=== PATIENT | male | born 1940 | race Caucasian/White ===

== ENCOUNTER 2017-07-14 02:51 | Outpatient (CLI) | payer MEDICARE, OTHER | END 2017-07-14 02:52 | disposition critical access hospital (66) | LOC: EMS 02:51 | PROVIDERS: ATTEND Surgery | DX: R07.9 Chest pain, unspecified (principal) | CPT/HCPCS: A0425; A0427 ==

== ENCOUNTER 2017-07-14 03:15 | Inpatient (IN) | payer MEDICARE, OTHER ==
[2017-07-14 03:43] LABS: BASOPHILS # (AUTO) 0.1 10^3/uL (0.0-0.1); BASOPHILS % (AUTO) 1.6 %; EOSINOPHILS # (AUTO) 0.1 10^3/uL (0.0-0.7); EOSINOPHILS % (AUTO) 0.8 %; HCT - HEMATOCRIT 36.2 % (42.0-52.0); LYMPHOCYTES # (AUTO) 1.1 10^3/uL (1.5-3.5); LYMPHOCYTES % (AUTO) 13.2 %; MEAN CORPUSCULAR HEMOGLOBIN 29.2 pg (27.0-31.0); MEAN CORPUSCULAR HGB CONC 33.1 g/dL (32.0-36.0); MEAN CORPUSCULAR VOLUME 88.3 fL (80.0-94.0); MEAN PLATELET VOLUME 7.8 fL (7.4-11.4); MONOCYTES # (AUTO) 0.8 10^3/uL (0.0-1.0); MONOCYTES % (AUTO) 9.2 %; NEUTROPHILS # (AUTO) 6.3 10^3/uL (1.5-6.6); NEUTROPHILS % (AUTO) 75.2 %; NUCLEATED RED BLOOD CELLS AUTO 0.1 /100WBC; RED CELL DISTRIBUTION WIDTH 14.6 % (12.0-15.0); UNCORRECTED WHITE BLOOD COUNT 8.4 x10^3/uL; WHITE BLOOD COUNT 8.4 x10^3/uL (4.8-10.8)
[2017-07-14 03:48] LABS: INR 1.5 (0.8-1.2); PT - PROTHROMBIN TIME 16.7 secs (9.9-12.6)
[2017-07-14 03:55] LABS: PARTIAL THROMBOPLASTIN TIME 28.4 secs (24.9-33.3)
--- NOTE | 2017-07-14 04:03 | XRAY Preliminary Report ---
Exam: XR Chest 1 View IMPRESSION: 1. Cardiomegaly with pulmonary opacities likely representing interstitial edema. [facility] SITE ID: [id number]
[2017-07-14 04:04] LABS: ALBUMIN/GLOBULIN RATIO 1.4 (1.0-2.2); BILIRUBIN,TOTAL 1.2 mg/dL (0.2-1.0); CALCIUM 8.9 mg/dL (8.5-10.3); CREATININE 1.2 mg/dL (0.6-1.2); MAGNESIUM 1.9 mg/dL (1.7-2.8); PHOSPHORUS 3.8 mg/dL (2.5-4.6); POTASSIUM 3.3 mmol/L (3.5-5.0)
--- NOTE | 2017-07-14 04:05 | XRAY Report ---
EXAM: CHEST RADIOGRAPHY EXAM DATE: 07/14/2017 03:33 AM. CLINICAL HISTORY: Chest pain. COMPARISON: None. TECHNIQUE: 1 view. FINDINGS: Lungs/Pleura: Bilateral mostly interstitial opacities which may represent pulmonary edema. No pleural effusion seen. No pneumothorax. Bibasilar atelectasis. Mediastinum: Mild cardiomegaly. Aortic atherosclerosis. Other: None. IMPRESSION: 1. Cardiomegaly with pulmonary opacities likely representing interstitial edema. [facility] Referring Provider Line: [phone] SITE ID: [id number]
[2017-07-14] MEDS ORDERED: FUROSEMIDE 40 MG/4 ML VIAL IVP STA (04:09)
[2017-07-14] MEDS ORDERED: FUROSEMIDE 40 MG/4 ML VIAL ONE (04:16)
--- NOTE | 2017-07-14 05:00 | ED Physician Documentation ---
PD HPI CHEST PAIN - Stated complaint Stated Complaint: CHEST PN/CHF - Chief complaint Chief Complaint: Cardiac - History obtained from History obtained from: Patient, EMS - History of Present Illness Timing - onset: Today Timing - onset during: Rest Timing - details: Abrupt onset, Now resolved Quality: Pressure, Sharp Location: Substernal, Left chest Improved by: Rest Associated symptoms: Shortness of air. No: Diaphoresis, Nausea, Vomiting, Feeling faint / dizzy Similar symptoms before: Work up / diagnostics, Treatment Recently seen: Emergency Dept - Additional information Additional information: Patient is a 76 year old male who was recently diagnosed with chf who is presenting to the emergency department for chest pain and shortness of breath. According to patient, family and ems patient has had intermittent chest pain for the last few weeks. Patient states that is supposed to follow up with a pharmacist aide but he has not been able to yet. Patient was also told to hold his lasix until today. patient reports that he had some chest pain so he called ems. When ems arrived his chest pain had resolved but patient was treated with aspirin. Upon my initial evaluation in the emergency department patient's chest pain had resolved. Review of Systems Constitutional: denies: Fever, Chills Eyes: denies: Decreased vision Ears: denies: Ear pain, Drainage/discharge Nose: denies: Rhinorrhea / runny nose, Congestion Throat: denies: Sore throat Cardiac: reports: Chest pain / pressure, Pedal edema. denies: Palpitations Respiratory: reports: Dyspnea GI: denies: Abdominal Pain, Nausea, Vomiting Skin: denies: Rash, Lesions Musculoskeletal: reports: Extremity swelling. denies: Extremity pain Neurologic: denies: Generalized weakness, Focal weakness PD PAST MEDICAL HISTORY - Past Medical History Past Medical History: Yes Cardiovascular: Congestive heart failure, Hypertension, Coronary artery disease , Angina, Atrial fibrillation, Other Respiratory: Asthma GI: GERD, Diverticulitis, Crohn's disease : Benign prostate hypertrophy Musculoskeletal: Osteoarthritis - Past Surgical History Past Surgical History: Yes General: Colonoscopy Cardiovascular: Cardiac catheterization HEENT: Tonsil/Adenoidectomy - Present Medications Home Medications: Ambulatory Orders Medication Instructions Recorded Confirmed Alfuzosin HCl [Alfuzosin HCl ER] 10 mg PO DAILY 07/14/17 07/14/17 Calcium Carbonate/Vitamin D3 1 tab PO DAILY 07/14/17 07/14/17 [Calcium 250-Vit D3 125 Tablet] Cyclobenzaprine [Flexeril] 10 mg PO TID PRN 07/14/17 07/14/17 Finasteride [Propecia] 1 mg PO DAILY 07/14/17 07/14/17 Folic Acid 1 mg PO DAILY 07/14/17 07/14/17 Furosemide 40 mg PO DAILY 07/14/17 07/14/17 Mesalamine [Pentasa] 1,500 mg PO BID 07/14/17 07/14/17 Metoprolol Succinate 50 mg PO DAILY 07/14/17 07/14/17 Omeprazole 20 mg PO DAILY 07/14/17 07/14/17 Ondansetron Odt [Zofran Odt] 4 mg SL Q6H 07/14/17 07/14/17 Rivaroxaban [Xarelto] 20 mg PO DAILY 07/14/17 07/14/17 Simvastatin 40 mg PO QPM 07/14/17 07/14/17 - Allergies Allergies/Adverse Reactions: Allergies Allergy/AdvReac Type Severity Reaction Status Date / Time Iodinated Contrast- Oral and Allergy Hives Verified 07/14/17 03:44 IV Dye thallium-201 Allergy Hives Verified 07/14/17 03:44 warfarin Allergy Hallucinati Verified 07/14/17 03:54 ons ibuprofen AdvReac Unknown Verified 07/14/17 03:53 Sulfa (Sulfonamide AdvReac Nausea Verified 07/14/17 03:44 Antibiotics) terazosin AdvReac Unknown Verified 07/14/17 03:54 - Social History Does the pt smoke?: No Smoking Status: Never smoker Does the pt drink ETOH?: No Does the pt have substance abuse?: No - Immunizations Immunizations are current?: Yes PD ED PE NORMAL - Vitals Vital signs reviewed: Yes - General General: Alert and oriented X 3 - HEENT HEENT: Atraumatic, PERRL - Neck Neck: Supple, no meningeal sign - Abdomen Abdomen: Soft, Non distended - Derm Derm: Normal color, No rash - Neuro Neuro: Alert and oriented X 3, No motor deficit, No sensory deficit, Normal speech - Psych Psych: Normal mood, Normal affect PD ED PE EXPANDED - Cardiac Cardiac: Irregularly irregular, Murmur Present - Respiratory Respiratory: Rales, Right upper lobe, Right middle lobe, Left upper lobe, Left lower lobe - Extremities Extremities: Pedal edema bilateral Results - Vitals Vitals: Vital Signs - 24 hr 07/14/17 07/14/17 07/14/17 03:16 03:33 05:06 Temperature 36.2 C L Heart Rate 76 79 70 Respiratory 26 H 20 22 Rate Blood Pressure 124/78 117/84 H 127/81 H O2 Saturation 93 97 98 Oxygen O2 Source Nasal cannula - EKG (time done) 0321 Rate: Rate (enter#) (77) Rhythm: Atrial fibrillation Intervals: Prolonged QT QRS: Normal Compare to prior EKG: Old EKG unavailable - Labs Labs: Laboratory Tests 07/14/17 07/14/17 07/14/17 03:30 03:30 03:30 WBC 8.4 RBC 4.10 L Hgb 12.0 L Hct 36.2 L MCV 88.3 MCH 29.2 MCHC 33.1 RDW 14.6 Plt Count 159 MPV 7.8 Neut # 6.3 Lymph # 1.1 L [place] # 0.8 Eos # 0.1 Baso # 0.1 Absolute Nucleated RBC 0.01 Nucleated RBC % 0.1 PT INR APTT Sodium 132 L Potassium 3.3 L Chloride 91 L Carbon Dioxide 31 Anion Gap 10.0 BUN 28 H Creatinine 1.2 Estimated GFR (MDRD) 59 L Glucose 112 H Calcium 8.9 Phosphorus 3.8 Magnesium 1.9 Total Bilirubin 1.2 H AST 22 ALT 25 Alkaline Phosphatase 63 Troponin I < 0.04 B-Natriuretic Peptide Total Protein 6.0 L Albumin 3.5 Globulin 2.5 Albumin/Globulin Ratio 1.4 Lipase 07/14/17 07/14/17 03:30 03:30 WBC RBC Hgb Hct MCV MCH MCHC RDW Plt Count MPV Neut # Lymph # [place] # Eos # Baso # Absolute Nucleated RBC Nucleated RBC % PT 16.7 H INR 1.5 H APTT 28.4 Sodium Potassium Chloride Carbon Dioxide Anion Gap BUN Creatinine Estimated GFR (MDRD) Glucose Calcium Phosphorus Magnesium Total Bilirubin AST ALT Alkaline Phosphatase Troponin I B-Natriuretic Peptide 802 H Total Protein Albumin Globulin Albumin/Globulin Ratio Lipase - Rads (name of study) chest x-ray Radiology: Final report received (cardiomegaly, pulmonary edema) PD MEDICAL DECISION MAKING - ED course Complexity details: reviewed results, re-evaluated patient, considered differential, d/w patient, d/w family, d/w sap consultant ED course: Patient was seen and examined at bedside. IV access was gained and labs were drawn. ekg was performed which did not reveal any ischemic changes. chest x- ray was performed which was consistent with pulmonary edema. patient was treated with lasix 40mg IV. Case was discussed with hospitalist and it was decided to obs the patient for chf exacerbation. Patient remained chest pain free while in the emergency department. Departure - Departure Disposition: ED Place in Observation Clinical Impression: Congestive heart failure Condition: Stable
[2017-07-14] MEDS ORDERED: ACETAMINOPHEN 325 MG TABLET PO PRN (05:01)
[2017-07-14] MEDS ORDERED: CYCLOBENZAPRINE 10 MG TABLET PO PRN (05:01)
[2017-07-14] MEDS ORDERED: NITROGLYCERIN SL 0.4 MG TABLET SL PRN (05:01)
[2017-07-14] MEDS ORDERED: PROCHLORPERAZINE 10 MG/2 ML VIAL IVP PRN (05:01)
[2017-07-14] MEDS ORDERED: ONDANSETRON ODT 4 MG TABLET TL PRN (05:01)
[2017-07-14] MEDS ORDERED: IBUPROFEN 600 MG TABLET PO PRN (05:01)
[2017-07-14] MEDS ORDERED: MORPHINE 2 MG/ML SYRINGE IVP PRN (05:01)
--- NOTE | 2017-07-14 05:14 | HISTORY & PHYSICAL EXAMINATION ---
Chief Complaint - Chief Complaint Chief Complaint: Chest pain History of Present Illness - Admitted From Admitted From:: Emergency department - History Obtained From Records Reviewed: Yes History obtained from: Patient Exam Limitations: No - History of Present Illness HPI Comment/Other: Patient is a 76-year-old gentleman with a past medical history significant for coronary artery disease status post FL in 1973 and placement of 2 stents, history of 3 TIAs, atrial fibrillation status post ablation 15 years ago currently on Xarelto, recently diagnosed congestive heart failure no record of echo, Crohn's disease and diverticulosis who presented to the emergency department with a chief complaint of chest pain. The patient states he was in his normal state of health until about a week and a half ago at which time he experienced some chest pain that was left-sided with associated shortness of breath. This led him to go to [facility] where he was diagnosed with congestive heart failure and admitted. Patient states he stayed there for 3 days and was given IV Lasix and then discharged on oral Lasix. The patient states that since the discharge she has been having some shortness of breath with exertion but has been feeling relatively better. The patient states that he went to see his primary care physician just 3 days ago to follow-up on his congestive heart failure. At that time he told his primary care physician that he was having some dizziness and feeling loopy from the diuretic therefore his primary care physician told him to hold the Lasix for the next 3 days and then started a lower dose on Monday. The patient states he followed his primary care physician's instructions but last night at 11:30 PM she began having chest pain. The chest pain was localized in the left side of the chest without any radiation. He states the pain was a 4 5 out of 10. He describes it as a dull pain. He states it was associated with shortness of breath. He states that it started at rest and initially was not bad enough that it prompted him to come to the emergency department. He states he went to bed but woke up about 3 hours later and was still having the chest pain. The patient then decided to call EMS. The patient states that the chest pain resolved once EMS arrived. He states he did take 4 baby aspirin but states that the pain resolved on its own. The patient did have some associated shortness of breath but no associated nausea, diaphoresis or palpitations. The patient states that he has been checking his weight daily and has been consistently losing weight since his recent hospitalization. The patient denies any increased lower extremity edema. He also denies any worsening orthopnea or PND until tonight. Patient denies any headaches, blurred vision, runny nose, sore throat, abdominal pain, nausea, vomiting, diarrhea, constipation, urinary urgency, urinary frequency, dysuria, bloody stools, recent unintentional weight loss, changes in appetite, fevers, chills, back pain, neck stiffness, joint pain, joint swelling, muscle aches or any focal neurologic deficits. On presentation to the emergency department the patient was afebrile and heart rate as well as blood pressure were within normal limit however patient was quite tachypneic and saturating about 93% on room air. The patient underwent routine lab work which did reveal slight hyponatremia and hypokalemia. It also revealed a BNP of 802 with a negative troponin. Patient did not have any leukocytosis. The patient's EKG did not show any ST elevations. The patient's chest x-ray showed cardiomegaly with pulmonary opacities likely representing interstitial edema. The patient did have crackles on examination but no significant JVD. The patient was given a dose of IV Lasix in the emergency department it was decided to place the patient in observation for further diuresis and cardiac workup. History - Past Medical History Cardiovascular: reports: Congestive heart failure, Hypertension, Coronary artery disease, Angina, Atrial fibrillation (On Xarelto), Other Respiratory: reports: Asthma GI: reports: GERD, Diverticulitis, Crohn's disease : reports: Benign prostate hypertrophy Musculoskeletal: reports: Osteoarthritis MRSA Hx?: No - Past Surgical History General: reports: Colonoscopy Cardiovascular: reports: Cardiac catheterization HEENT: reports: Tonsil/Adenoidectomy - Family & Social History Family History: Mother: , Father: , CAD Living arrangement: At home Living Situation: Alone Social History Notes: The patient lives in [place] with his . He states both him and his are very independent. The patient does use a cane at home he also has a walker which he uses rarely. The patient had 4 children 1 of whom has . The patient is retired [employer]. He is originally from [place]. The patient has never smoked cigarettes, does not drink alcohol and denies any illicit drug use. - Substance History Use: Uses substance without health or social issues: NONE Abuse: Recurrent use of substance despite neg consequences: NONE Dependence: Experiences withdrawal or developed tolerances: NONE - POLST Patient has POLST: No POLST Status: DNR Meds/Allgy - Home Medications Home Medications: Ambulatory Orders Medication Instructions Recorded Confirmed Alfuzosin HCl [Alfuzosin HCl ER] 10 mg PO DAILY 07/14/17 07/14/17 Calcium Carbonate/Vitamin D3 1 tab PO DAILY 07/14/17 07/14/17 [Calcium 250-Vit D3 125 Tablet] Cyclobenzaprine [Flexeril] 10 mg PO TID PRN 07/14/17 07/14/17 Finasteride [Propecia] 1 mg PO DAILY 07/14/17 07/14/17 Folic Acid 1 mg PO DAILY 07/14/17 07/14/17 Furosemide 40 mg PO DAILY 07/14/17 07/14/17 Mesalamine [Pentasa] 1,500 mg PO BID 07/14/17 07/14/17 Metoprolol Succinate 50 mg PO DAILY 07/14/17 07/14/17 Omeprazole 20 mg PO DAILY 07/14/17 07/14/17 Ondansetron Odt [Zofran Odt] 4 mg SL Q6H 07/14/17 07/14/17 Rivaroxaban [Xarelto] 20 mg PO DAILY 07/14/17 07/14/17 Simvastatin 40 mg PO QPM 07/14/17 07/14/17 - Allergies Allergies/Adverse Reactions: Allergies Allergy/AdvReac Type Severity Reaction Status Date / Time Iodinated Contrast- Oral and Allergy Hives Verified 07/14/17 03:44 IV Dye thallium-201 Allergy Hives Verified 07/14/17 03:44 warfarin Allergy Hallucinati Verified 07/14/17 03:54 ons ibuprofen AdvReac Unknown Verified 07/14/17 03:53 Sulfa (Sulfonamide AdvReac Nausea Verified 07/14/17 03:44 Antibiotics) terazosin AdvReac Unknown Verified 07/14/17 03:54 Review of Systems - Other Findings Other Findings: A comprehensive of review of systems is performed the pertinent positives and negatives are stated above in the HPI the remainder of the review of systems is negative. Exam - Vital Signs Reviewed Vital Signs: Yes Vital Signs: Vital Signs x48h Temp Pulse Resp BP Pulse Ox 07/14/17 05:06 70 22 127/81 H 98 07/14/17 03:33 79 20 117/84 H 97 07/14/17 03:16 36.2 C L 76 26 H 124/78 93 - Physical Exam General Appearance: positive: Alert, Mild distress (Mildly tachypneic and short of breath), Other (Elderly, lots of bruising on the skin) Eyes Bilateral: positive: Normal inspection, PERRL, EOMI, No lid inflammation, Conjunctivae nml, No scleral icterus ENT: positive: ENT inspection nml, Pharynx nml, No signs of dehydration. negative: Purulent nasal drainage, Pharyngeal erythema, Oral lesions Neck: positive: Nml inspection, Thyroid nml, No JVD, Trachea midline. negative : Thyromegaly, Lymphadenopathy (R), Lymphadenopathy (L), Stiff neck, Carotid bruit, Tracheal deviation Respiratory: positive: Chest non-tender, No respiratory distress, Wheezes (Mild upper airway wheezing), Rales (Bilateral crackles about a third way up the lung) Cardiovascular: positive: No gallop, Irregularly irregular, Systolic murmur Peripheral Pulses: positive: 2+ Abdomen: positive: Non-tender, No organomegaly, Nml bowel sounds, No distention. negative: Guarding, Rebound, Hepatomegaly Back: positive: Nml inspection. negative: CVA tenderness (R), CVA tenderness (L ) Skin: positive: No rash, Warm, Dry, Other (Bruising). negative: Cyanosis, Pallor Extremities: positive: Non-tender, Full ROM, Nml appearance, Pedal edema (Mild bilateral). negative: Joint swelling Neurologic/Psychiatric: positive: Oriented x3, CN's nml (2-12), Motor nml, Sensation nml, Mood/affect nml Conclusion/Plan - Problem List (1) CHF exacerbation Conclusion/Plan: Patient was recently diagnosed with CHF a week and a half ago. He was seen at [facility] and had an echocardiogram at that time. Patient was hospitalized for 3 days and underwent diuresis with IV Lasix. Patient was discharged home states he was feeling better and taking home Lasix. However his Lasix was stopped 2 days ago as he ran out of Lasix and was having some dizziness while taking Lasix. The patient developed left-sided chest pain last night with associated shortness of air. When he arrived in the emergency department the patient had an elevated BNP, crackles on examination and chest x- ray showing edema in the lungs. Patient was given 1 dose of IV Lasix in the emergency department and placed in observation for further diuresis and cardiac monitoring. Plan: IV Lasix twice daily Fluid restriction 2 L Strict I's and O's Daily weights Get records from [facility] regarding results of echocardiogram If patient has systolic heart failure patient should be on metoprolol and lisinopril currently he is on metoprolol alone. Supplemental oxygen as needed Qualifiers: Congestive heart failure type: unspecified congestive heart failure type Qualified Code(s): I50.9 - Heart failure, unspecified (2) Chest pain Conclusion/Plan: Patient presented with left-sided chest pain and associated shortness of breath. The patient states he had similar symptoms a week and a half ago when he presented to [facility] and was found to have congestive heart failure. The symptoms resolved without any intervention. The symptoms occurred at rest. Chest pain is likely secondary to congestion secondary to his CHF. However given the patient does have a new diagnosis of congestive heart failure if he does have a reduced ejection fraction the patient requires further workup to decide if he would benefit from revascularization. Plan: Serial troponins x3 Telemetry monitoring Nitroglycerin when necessary for chest pain Aspirin Lipitor Metoprolol We will get records from [facility] regarding his most recent echo and then decide whether patient needs a stress test while he is hospitalized. Qualifiers: Chest pain type: unspecified Qualified Code(s): R07.9 - Chest pain, unspecified (3) Atrial fibrillation Conclusion/Plan: Patient has chronic atrial fibrillation he underwent a ablation 15 years ago. Patient's rate is controlled on metoprolol. Patient has a chads 2 score of 4 and is appropriately on Xarelto. Plan: Patient will be continued on telemetry monitoring We will continue patient's home dose of metoprolol Patient will be continued on Xarelto Qualifiers: Atrial fibrillation type: chronic Qualified Code(s): I48.2 - Chronic atrial fibrillation (4) Hypokalemia Conclusion/Plan: On presentation the patient has potassium of 3.3 this is likely secondary to using Lasix at home. Patient will be placed on potassium chloride 20 mg once daily while he is hospitalized and on Lasix. Monitor potassium (5) Hyponatremia Conclusion/Plan: Patient likely has hypovolemic hyponatremia as he has history of CHF and is currently overloaded. Plan: Patient will be given IV Lasix and placed on fluid restriction We will monitor patient's sodium (6) Crohns disease Conclusion/Plan: Patient has history of Crohn's disease and is maintained on mesalamine. Patient appears to be stable We will continue his home dose of mesalamine while he is hospitalized. - Lab Results Lab results reviewed: Yes Fish Bones: 07/14/17 03:30 07/14/17 03:30 Other Lab Results: Laboratory Results WBC 8.4 x10^3/uL (4.8-10.8) 07/14/17 03:30 RBC 4.10 10^6/uL (4.70-6.10) L 07/14/17 03:30 Hgb 12.0 g/dL (14.0-18.0) L 07/14/17 03:30 Hct 36.2 % (42.0-52.0) L 07/14/17 03:30 MCV 88.3 fL (80.0-94.0) 07/14/17 03:30 MCH 29.2 pg (27.0-31.0) 07/14/17 03:30 MCHC 33.1 g/dL (32.0-36.0) 07/14/17 03:30 RDW 14.6 % (12.0-15.0) 07/14/17 03:30 Plt Count 159 10^3/uL (130-450) 07/14/17 03:30 MPV 7.8 fL (7.4-11.4) 07/14/17 03:30 Neut # 6.3 10^3/uL (1.5-6.6) 07/14/17 03:30 Lymph # 1.1 10^3/uL (1.5-3.5) L 07/14/17 03:30 [place] # 0.8 10^3/uL (0.0-1.0) 07/14/17 03:30 Eos # 0.1 10^3/uL (0.0-0.7) 07/14/17 03:30 Baso # 0.1 10^3/uL (0.0-0.1) 07/14/17 03:30 Absolute Nucleated RBC 0.01 x10^3/uL 07/14/17 03:30 Nucleated RBC % 0.1 /100WBC 07/14/17 03:30 PT 16.7 secs (9.9-12.6) H 07/14/17 03:30 INR 1.5 (0.8-1.2) H 07/14/17 03:30 APTT 28.4 secs (24.9-33.3) 07/14/17 03:30 Sodium 132 mmol/L (135-145) L 07/14/17 03:30 Potassium 3.3 mmol/L (3.5-5.0) L 07/14/17 03:30 Chloride 91 mmol/L (101-111) L 07/14/17 03:30 Carbon Dioxide 31 mmol/L (21-32) 07/14/17 03:30 Anion Gap 10.0 (6-13) 07/14/17 03:30 BUN 28 mg/dL (6-20) H 07/14/17 03:30 Creatinine 1.2 mg/dL (0.6-1.2) 07/14/17 03:30 Estimated GFR (MDRD) 59 (>89) L 07/14/17 03:30 Glucose 112 mg/dL (70-100) H 07/14/17 03:30 Calcium 8.9 mg/dL (8.5-10.3) 07/14/17 03:30 Phosphorus 3.8 mg/dL (2.5-4.6) 07/14/17 03:30 Magnesium 1.9 mg/dL (1.7-2.8) 07/14/17 03:30 Total Bilirubin 1.2 mg/dL (0.2-1.0) H 07/14/17 03:30 AST 22 IU/L (10-42) 07/14/17 03:30 ALT 25 IU/L (10-60) 07/14/17 03:30 Alkaline Phosphatase 63 IU/L (42-121) 07/14/17 03:30 Troponin I < 0.04 ng/mL (<0.49) 07/14/17 03:30 B-Natriuretic Peptide 802 pg/mL (5-100) H 07/14/17 03:30 Total Protein 6.0 g/dL (6.7-8.2) L 07/14/17 03:30 Albumin 3.5 g/dL (3.2-5.5) 07/14/17 03:30 Globulin 2.5 g/dL (2.1-4.2) 07/14/17 03:30 Albumin/Globulin Ratio 1.4 (1.0-2.2) 07/14/17 03:30 Lipase 28 U/L (22-51) 07/14/17 03:30 - Diagnostic Imaging Results Diagnostic Imaging Results: positive: Final report reviewed Diagnostic Imaging Results Comments: Chest x-ray Impression: 1. Cardiomegaly with pulmonary opacities likely representing interstitial edema - EKG Results EKG Interpreted Independently: Yes EKG Findings: Atrial fibrillation, no ST elevations nonspecific T-wave flattening inferior leads Issues/Core Measures - Anticipated LOS Anticipated Stay Length: Less than 2 midnights - DVT/VTE - Prophylaxis VTE/DVT Device ordered at admit?: Yes
[2017-07-14] MEDS ORDERED: PANTOPRAZOLE 40 MG TABLET PO SCH (07:00)
[2017-07-14] MEDS: SODIUM CHLORIDE FLUSH 0.9% 10 ML SYRINGE IVP SCH ×3 (07:05→21:03)
[2017-07-14] MEDS: PANTOPRAZOLE 40 MG TABLET PO SCH (07:05)
[2017-07-14] MEDS ORDERED: FUROSEMIDE 40 MG/4 ML VIAL IVP SCH (09:00)
[2017-07-14] MEDS: POTASSIUM CHLORIDE 20 MEQ TABLET PO SCH (10:34)
[2017-07-14] MEDS: RIVAROXABAN 10 MG TABLET PO SCH (10:34)
[2017-07-14] MEDS: POLYETHYLENE GLYCOL 3350 17 GM PACKET PO SCH ×2 (10:34→14:29)
[2017-07-14] MEDS: METOPROLOL SUCCINATE 50 MG TABLET PO SCH (10:34)
[2017-07-14] MEDS: FINASTERIDE 5 MG TABLET PO SCH (10:34)
[2017-07-14] MEDS: FOLIC ACID 1 MG TABLET PO SCH (10:34)
[2017-07-14] MEDS: CALCIUM CARBONATE CHEW 500 MG TABLET PO SCH (10:35)
[2017-07-14] MEDS: NITROGLYCERIN 0.4 MG/HR PATCH TOP SCH (14:06)
[2017-07-14] MEDS: CHOLECALCIFEROL 400 UNIT TABLET PO SCH (14:29)
[2017-07-14] MEDS: TAMSULOSIN 0.4 MG CAPSULE PO SCH (17:21)
[2017-07-14] MEDS: SODIUM CHLORIDE FLUSH 0.9% 10 ML SYRINGE IVP PRN (21:03)
[2017-07-14] MEDS: ATORVASTATIN 10 MG TABLET PO SCH (21:03)
[2017-07-14] MEDS: FUROSEMIDE 40 MG/4 ML VIAL IVP SCH (21:04)
[2017-07-15 05:54] LABS: BASOPHILS % (AUTO) 0.6 %; EOSINOPHILS # (AUTO) 0.1 10^3/uL (0.0-0.7); EOSINOPHILS % (AUTO) 1.6 %; HCT - HEMATOCRIT 34.3 % (42.0-52.0); HGB - HEMOGLOBIN 11.4 g/dL (14.0-18.0); LYMPHOCYTES # (AUTO) 1.1 10^3/uL (1.5-3.5); MEAN CORPUSCULAR HEMOGLOBIN 29.5 pg (27.0-31.0); MEAN CORPUSCULAR HGB CONC 33.1 g/dL (32.0-36.0); MEAN CORPUSCULAR VOLUME 89.1 fL (80.0-94.0); MEAN PLATELET VOLUME 8.2 fL (7.4-11.4); MONOCYTES # (AUTO) 0.7 10^3/uL (0.0-1.0); MONOCYTES % (AUTO) 9.7 %; NEUTROPHILS # (AUTO) 5.7 10^3/uL (1.5-6.6); NEUTROPHILS % (AUTO) 74.1 %; NUCLEATED RED BLOOD CELLS AUTO 0.2 /100WBC; RED BLOOD COUNT 3.85 10^6/uL (4.70-6.10); RED CELL DISTRIBUTION WIDTH 14.3 % (12.0-15.0); UNCORRECTED WHITE BLOOD COUNT 7.7 x10^3/uL; WHITE BLOOD COUNT 7.7 x10^3/uL (4.8-10.8)
[2017-07-15 06:06] LABS: ALBUMIN/GLOBULIN RATIO 1.5 (1.0-2.2); BILIRUBIN,TOTAL 1.2 mg/dL (0.2-1.0); BUN - BLOOD UREA NITROGEN 23 mg/dL (6-20); CALCIUM 8.4 mg/dL (8.5-10.3); CARBON DIOXIDE - CO2 34 mmol/L (21-32); CHLORIDE 88 mmol/L (101-111); CHOL/HDL RATIO 3.5 (<5.0); CHOLESTEROL 95 mg/dL; CREATININE 1.1 mg/dL (0.6-1.2); GFR - MDRD 65 (>89); GLUCOSE 100 mg/dL (70-100); HDL CHOLESTEROL 27 mg/dL; LDL/HDL RATIO 2.1 (<3.6); MAGNESIUM 1.8 mg/dL (1.7-2.8); SODIUM 133 mmol/L (135-145); TOTAL PROTEIN 5.5 g/dL (6.7-8.2); TRIGLYCERIDES 49 mg/dL; VLDL CHOLESTEROL 10 mg/dL
[2017-07-15] MEDS: PANTOPRAZOLE 40 MG TABLET PO SCH (06:32)
[2017-07-15] MEDS: SODIUM CHLORIDE FLUSH 0.9% 10 ML SYRINGE IVP SCH ×3 (06:32→14:45)
[2017-07-15] MEDS: FUROSEMIDE 40 MG/4 ML VIAL IVP SCH ×3 (06:33→21:10)
[2017-07-15] MEDS: POTASSIUM CHLORIDE 20 MEQ TABLET PO SCH (08:58)
[2017-07-15] MEDS: FINASTERIDE 5 MG TABLET PO SCH (08:58)
[2017-07-15] MEDS: RIVAROXABAN 10 MG TABLET PO SCH (08:58)
[2017-07-15] MEDS: METOPROLOL SUCCINATE 50 MG TABLET PO SCH (08:58)
[2017-07-15] MEDS: FOLIC ACID 1 MG TABLET PO SCH (08:58)
[2017-07-15] MEDS: CALCIUM CARBONATE CHEW 500 MG TABLET PO SCH (08:58)
[2017-07-15] MEDS: NITROGLYCERIN 0.4 MG/HR PATCH TOP SCH (08:59)
[2017-07-15] MEDS: CHOLECALCIFEROL 400 UNIT TABLET PO SCH (08:59)
[2017-07-15] MEDS: POLYETHYLENE GLYCOL 3350 17 GM PACKET PO SCH (08:59)
[2017-07-15] MEDS ORDERED: SODIUM CHLORIDE 0.9% 250 ML IV ONE (12:53)
[2017-07-15] MEDS: POTASSIUM CHLOR 10 MEQ/100 ML 10 MEQ/100 ML BAG IV SCH ×2 (12:57→14:51)
[2017-07-15] MEDS ORDERED: POTASSIUM CHLOR 10 MEQ/100 ML 10 MEQ/100 ML BAG IV SCH (15:00)
[2017-07-15] MEDS: TAMSULOSIN 0.4 MG CAPSULE PO SCH (17:37)
[2017-07-15] MEDS: ATORVASTATIN 10 MG TABLET PO SCH (21:09)
[2017-07-15] MEDS: SODIUM CHLORIDE FLUSH 0.9% 10 ML SYRINGE IVP PRN (21:10)
--- NOTE | 2017-07-15 22:28 | PROVIDER PROGRESS NOTE ---
Assessment/Plan - Problem List (1) CHF exacerbation Qualifiers: Congestive heart failure type: unspecified congestive heart failure type Qualified Code(s): I50.9 - Heart failure, unspecified Assessment/Plan: Continue diuresis Will change to full inpt status since no significsant respiratory improvement (2) Mitral regurgitation due to cusp prolapse Assessment/Plan: Severe, with pulmonary HTN Will continue plan. Pt will need Cardiol W/U for poss MV repair. He is amenable to this. Could be scheduled to see his prior Separator Inserter in [place] as outpt. - Current Meds Current Meds: Current Medications Generic Name Dose Route Start Last Admin Trade Name Freq PRN Reason Stop Dose Admin Atorvastatin Calcium 20 mg 07/14/17 21:00 07/15/17 21:09 Lipitor PO 20 mg QPM KWABENA Administration Calcium Carbonate/Glycine 750 mg 07/14/17 09:00 07/15/17 08:58 Tums PO 750 mg DAILY KWABENA Administration Cholecalciferol 400 unit 07/14/17 09:00 07/15/17 08:59 Vitamin D3 PO 400 unit DAILY KWABENA Administration Finasteride 5 mg 07/14/17 09:00 07/15/17 08:58 Proscar PO 5 mg DAILY KWABENA Administration Folic Acid 1 mg 07/14/17 09:00 07/15/17 08:58 PO 1 mg DAILY KWABENA Administration Furosemide 40 mg 07/14/17 22:00 07/15/17 21:10 Lasix Inj 40 Mg Vial IVP 40 mg TID KWABENA Administration Metoprolol Succinate 50 mg 07/14/17 09:00 07/15/17 08:58 Toprol Xl PO 50 mg DAILY KWABENA Administration Nitroglycerin 1 patch 07/14/17 14:00 07/15/17 08:59 Nitro-Dur TOP 1 patch DAILY KWABENA Administration Pantoprazole Sodium 40 mg 07/14/17 07:00 07/15/17 06:32 Protonix PO 40 mg QDAC KWABENA Administration (Mesalamine [Pentasa 2 each 07/14/17 08:00 07/15/17 21:10 ] 500 Mg) Capsules PO 2 each TID KWABENA Administration Polyethylene Glycol 17 gm 07/14/17 09:00 07/15/17 08:59 Miralax PO 17 gm DAILY KWABENA Administration Rivaroxaban 20 mg 07/14/17 09:00 07/15/17 08:58 Xarelto PO 20 mg DAILY KWABENA Administration Sodium Chloride 10 ml 07/14/17 05:01 07/15/17 21:10 Normal Saline Flush 0.9% IVP 10 ml PRN PRN Administration NEEDED PER PROVIDER ORDERS Sodium Chloride 10 ml 07/14/17 06:00 07/15/17 14:45 Normal Saline Flush 0.9% IVP 10 ml Q8HR KWABENA Administration Tamsulosin HCl 0.4 mg 07/14/17 17:30 07/15/17 17:37 Flomax PO 0.4 mg 1730 KWABENA Administration - Lab Result Fish Bone Diagrams: 07/15/17 04:46 07/15/17 04:46 Subjective - Subjective Patient Reports: Feeling Better (Pt states he is only "50% better") Nursing Reports: No Complaints Objective Vital Signs: Vital Signs - 24 hr 07/15/17 07/15/17 17:20 21:07 Temperature 36.4 C L 36.2 C L Heart Rate [ 80 72 Brachial] Respiratory 18 18 Rate Blood Pressure 119/71 117/70 [Right Brachial artery] O2 Saturation 96 97 Oxygen O2 Source Nasal cannula I&O (Last 24 Hrs): Intake and Output Totals x24h 07/13/17 07/14/17 07/15/17 23:59 23:59 23:59 Intake Total 800 Output Total 860 Balance -60 General: Alert, Oriented x3 HEENT: Mucous membr. moist/pink Neck: No JVD Cardiovascular: Regular rate, Other (2/6 murmur at LLSB) Respiratory: Other (L base diminished) Abdomen: Soft Extremities: No edema - Results Results: Laboratory Results WBC 7.7 x10^3/uL (4.8-10.8) 07/15/17 04:46 RBC 3.85 10^6/uL (4.70-6.10) L 07/15/17 04:46 Hgb 11.4 g/dL (14.0-18.0) L 07/15/17 04:46 Hct 34.3 % (42.0-52.0) L 07/15/17 04:46 MCV 89.1 fL (80.0-94.0) 07/15/17 04:46 MCH 29.5 pg (27.0-31.0) 07/15/17 04:46 MCHC 33.1 g/dL (32.0-36.0) 07/15/17 04:46 RDW 14.3 % (12.0-15.0) 07/15/17 04:46 Plt Count 160 10^3/uL (130-450) 07/15/17 04:46 MPV 8.2 fL (7.4-11.4) 07/15/17 04:46 Neut # 5.7 10^3/uL (1.5-6.6) 07/15/17 04:46 Lymph # 1.1 10^3/uL (1.5-3.5) L 07/15/17 04:46 [place] # 0.7 10^3/uL (0.0-1.0) 07/15/17 04:46 Eos # 0.1 10^3/uL (0.0-0.7) 07/15/17 04:46 Baso # 0.0 10^3/uL (0.0-0.1) 07/15/17 04:46 Absolute Nucleated RBC 0.01 x10^3/uL 07/15/17 04:46 Nucleated RBC % 0.2 /100WBC 07/15/17 04:46 PT 16.7 secs (9.9-12.6) H 07/14/17 03:30 INR 1.5 (0.8-1.2) H 07/14/17 03:30 APTT 28.4 secs (24.9-33.3) 07/14/17 03:30 Sodium 133 mmol/L (135-145) L 07/15/17 04:46 Potassium 3.0 mmol/L (3.5-5.0) L 07/15/17 04:46 Chloride 88 mmol/L (101-111) L 07/15/17 04:46 Carbon Dioxide 34 mmol/L (21-32) H 07/15/17 04:46 Anion Gap 11.0 (6-13) 07/15/17 04:46 BUN 23 mg/dL (6-20) H 07/15/17 04:46 Creatinine 1.1 mg/dL (0.6-1.2) 07/15/17 04:46 Estimated GFR (MDRD) 65 (>89) L 07/15/17 04:46 Glucose 100 mg/dL (70-100) 07/15/17 04:46 Calcium 8.4 mg/dL (8.5-10.3) L 07/15/17 04:46 Phosphorus 3.8 mg/dL (2.5-4.6) 07/14/17 03:30 Magnesium 1.8 mg/dL (1.7-2.8) 07/15/17 04:46 Total Bilirubin 1.2 mg/dL (0.2-1.0) H 07/15/17 04:46 AST 19 IU/L (10-42) 07/15/17 04:46 ALT 23 IU/L (10-60) 07/15/17 04:46 Alkaline Phosphatase 57 IU/L (42-121) 07/15/17 04:46 Troponin I < 0.04 ng/mL (<0.49) 07/14/17 15:54 B-Natriuretic Peptide 600 pg/mL (5-100) H 07/15/17 04:46 Total Protein 5.5 g/dL (6.7-8.2) L 07/15/17 04:46 Albumin 3.3 g/dL (3.2-5.5) 07/15/17 04:46 Globulin 2.2 g/dL (2.1-4.2) 07/15/17 04:46 Albumin/Globulin Ratio 1.5 (1.0-2.2) 07/15/17 04:46 Triglycerides 49 mg/dL (-149) 07/15/17 04:46 Cholesterol 95 mg/dL (-199) 07/15/17 04:46 LDL Cholesterol, Calc 58 mg/dL (-129) 07/15/17 04:46 VLDL Cholesterol 10 mg/dL 07/15/17 04:46 HDL Cholesterol 27 mg/dL (60-) L 07/15/17 04:46 LDL/HDL Ratio 2.1 (<3.6) 07/15/17 04:46 Cholesterol/HDL Ratio 3.5 (<5.0) 07/15/17 04:46 Lipase 28 U/L (22-51) 07/14/17 03:30
[2017-07-16] MEDS: SODIUM CHLORIDE FLUSH 0.9% 10 ML SYRINGE IVP SCH (06:16)
[2017-07-16] MEDS: FUROSEMIDE 40 MG/4 ML VIAL IVP SCH (06:16)
[2017-07-16] MEDS: PANTOPRAZOLE 40 MG TABLET PO SCH (06:16)
[2017-07-16 06:23] LABS: BASOPHILS % (AUTO) 0.5 %; EOSINOPHILS # (AUTO) 0.1 10^3/uL (0.0-0.7); EOSINOPHILS % (AUTO) 1.1 %; HCT - HEMATOCRIT 36.3 % (42.0-52.0); HGB - HEMOGLOBIN 11.9 g/dL (14.0-18.0); LYMPHOCYTES # (AUTO) 1.1 10^3/uL (1.5-3.5); LYMPHOCYTES % (AUTO) 14.4 %; MEAN CORPUSCULAR HEMOGLOBIN 29.3 pg (27.0-31.0); MEAN CORPUSCULAR HGB CONC 32.7 g/dL (32.0-36.0); MEAN CORPUSCULAR VOLUME 89.5 fL (80.0-94.0); MEAN PLATELET VOLUME 8.4 fL (7.4-11.4); MONOCYTES # (AUTO) 0.8 10^3/uL (0.0-1.0); MONOCYTES % (AUTO) 10.8 %; NEUTROPHILS # (AUTO) 5.7 10^3/uL (1.5-6.6); NEUTROPHILS % (AUTO) 73.2 %; NUCLEATED RED BLOOD CELLS AUTO 0.1 /100WBC; RED BLOOD COUNT 4.06 10^6/uL (4.70-6.10); RED CELL DISTRIBUTION WIDTH 15.1 % (12.0-15.0); UNCORRECTED WHITE BLOOD COUNT 7.7 x10^3/uL; WHITE BLOOD COUNT 7.7 x10^3/uL (4.8-10.8)
[2017-07-16 06:35] LABS: ALBUMIN/GLOBULIN RATIO 1.5 (1.0-2.2); BILIRUBIN,TOTAL 1.3 mg/dL (0.2-1.0); CALCIUM 8.5 mg/dL (8.5-10.3); CREATININE 0.9 mg/dL (0.6-1.2); POTASSIUM 3.1 mmol/L (3.5-5.0); TOTAL PROTEIN 5.8 g/dL (6.7-8.2)
[2017-07-16] MEDS ORDERED: POTASSIUM CHLORIDE 20 MEQ TABLET PO SCH (08:00)
[2017-07-16] MEDS: POLYETHYLENE GLYCOL 3350 17 GM PACKET PO SCH (10:18)
[2017-07-16] MEDS: CALCIUM CARBONATE CHEW 500 MG TABLET PO SCH (10:18)
[2017-07-16] MEDS: RIVAROXABAN 10 MG TABLET PO SCH (10:19)
[2017-07-16] MEDS: METOPROLOL SUCCINATE 50 MG TABLET PO SCH (10:20)
[2017-07-16] MEDS: FOLIC ACID 1 MG TABLET PO SCH (10:20)
[2017-07-16] MEDS: CHOLECALCIFEROL 400 UNIT TABLET PO SCH (10:20)
[2017-07-16] MEDS: FINASTERIDE 5 MG TABLET PO SCH (10:21)
[2017-07-16] MEDS: NITROGLYCERIN 0.4 MG/HR PATCH TOP SCH (11:31)
[2017-07-16 12:19] VITALS: BP 111/68
--- NOTE | 2017-07-16 12:43 | Discharge Plan ---
Discharge Plan Disposition: 01 Home, Self Care Condition: Fair Prescriptions: Potassium Chloride [K-Dur] 20 meq PO DAILYWM #30 tablet Diet: Low Sodium Shower Restrictions: No Driving Restrictions: No Instruction Topics: Heart Failure Warning Signs, Heart Failure Tracking Weight Additional Instructions or Follow Up instructions: Decrease your salty food intake See your provider to make appointment with your Charge Machine Operator No Smoking: If you smoke, Please STOP! Call for help.
--- NOTE | 2017-07-17 08:27 | DISCHARGE SUMMARY ---
DATE OF ADMISSION: 07/14/2017 DATE OF DISCHARGE: 07/16/2017 HISTORY OF PRESENT ILLNESS: This is a 76-year-old white male with a history of coronary disease with prior stenting, history of atrial fibrillation on Xarelto , history of 3 TIAs, Crohn disease and diverticulitis. The patient presented after developing chest pain that resolved on its own, as well as progressive dyspnea. He had been admitted to [facility] approximately 10 days previously and diagnosed with congestive heart failure and discharged on Lasix, but the Lasix made him dizzy. Therefore, he stopped it and over the 3 days prior to this admission, he became short of breath with orthopnea and PND. The patient was admitted for management of his heart failure and chest pain. HOSPITAL COURSE AND DISCHARGE DIAGNOSES 1. Congestive heart failure. The patient's echo from [facility] was obtained here and reviewed. This showed normal LVEF, but moderate to severe mitral regurgitation with a very eccentric jet due to mitral valve prolapse and moderate pulmonary hypertension. The patient had normal troponins here. He was diuresed and felt better in several days. The patient was advised to resee his adjunct faculty (who he had not seen in over 10 years) for further management of his severe mitral regurgitation, which may have led to the recent 2 admissions for heart failure, probably needing mitral valve repair or replacement. The patient was eager to have this followup for further management. 2. Chest pain. The patient had no further chest pain during this entire admission and troponins were normal with no EKG changes. Medications were continued as preadmission. The angina will need evaluation, especially if open heart surgery for the mitral valve would be planned, the patient would need to undergo preop angiography. This was discussed with the patient, and he understood the plan for his heart overall. 3. Atrial fibrillation. The patient had remote ablation and was in sinus rhythm during this admission and maintained on his Xarelto. 4. History of Crohn disease and diverticulosis. There were no GI complaints during this entire admission. CONDITION AT DISCHARGE: Fair. Vital signs were stable, in normal sinus rhythm, and the patient had a 2-3/6 honking systolic murmur heard at the lower left sternal border. No gallop or RV heave and improved leg edema compared to admission. FOLLOWUP: The patient was aware of the need for followup with his PCP and to make arrangements for followup with his previous adjunct faculty. Medications at discharge were unchanged from those at admission with the new medication of potassium chloride 20 mEq p.o. daily. TIME FOR COMPLETION OF DISCHARGE: 25 minutes. JOB #: [id number] EXT JOB #:[id number] ROGER
== END 2017-07-16 13:00 | disposition home or self-care (01) | DRG 292 ==
LOC: ED 03:15 → OBS 05:02 → MS2 07-15 14:33 → OBSVTOIN 07-15 15:27
PROVIDERS: ADMIT Internal Medicine; ATTEND Internal Medicine
DX: I11.0 Hypertensive heart disease with heart failure (principal); I50.9 Heart failure, unspecified; R07.2 Precordial pain; I48.2 Chronic atrial fibrillation; E87.6 Hypokalemia; E87.1 Hypo-osmolality and hyponatremia; E87.70 Fluid overload, unspecified; K50.90 Crohn's disease, unspecified, without complications; I34.1 Nonrheumatic mitral (valve) prolapse; J45.909 Unspecified asthma, uncomplicated; K21.9 Gastro-esophageal reflux disease without esophagitis; N40.0 Benign prostatic hyperplasia without lower urinary tract symptoms; I25.2 Old myocardial infarction; I27.20 Pulmonary hypertension, unspecified; I25.119 Atherosclerotic heart disease of native coronary artery with unspecified angina pectoris; I48.91 Unspecified atrial fibrillation; Z66 Do not resuscitate; Z95.5 Presence of coronary angioplasty implant and graft; Z79.01 Long term (current) use of anticoagulants; Z86.73 Personal history of transient ischemic attack (TIA), and cerebral infarction without residual deficits; Z87.19 Personal history of other diseases of the digestive system
CPT/HCPCS: 36415; 71010; 80053; 80061; 83690; 83735; 83880; 84100; 84484; 85025; 85610; 85730; 93005; 96374; 96375; 99283; 99284

== ENCOUNTER 2017-07-16 22:21 | Outpatient (CLI) | payer MEDICARE, OTHER | END 2017-07-16 22:22 | disposition short-term general hospital (02) | LOC: EMS 22:21 | PROVIDERS: ATTEND Surgery | DX: R06.02 Shortness of breath (principal); R00.2 Palpitations | CPT/HCPCS: A0425; A0429 ==

== ENCOUNTER 2018-09-23 18:25 | Outpatient (CLI) | payer MEDICARE, OTHER | END 2018-09-23 18:26 | disposition short-term general hospital (02) | LOC: EMS 18:25 | PROVIDERS: ATTEND Surgery | DX: R07.9 Chest pain, unspecified (principal) | CPT/HCPCS: A0425; A0427 ==

== ENCOUNTER 2019-10-03 22:05 | Outpatient (CLI) | payer MEDICARE, OTHER | END 2019-10-03 22:06 | disposition short-term general hospital (02) | LOC: EMS 22:05 | PROVIDERS: ATTEND Surgery | DX: M25.561 Pain in right knee (principal) | CPT/HCPCS: A0425; A0429 ==

== ENCOUNTER 2019-11-23 04:01 | Outpatient (CLI) | payer MEDICARE, OTHER | END 2019-11-23 04:02 | disposition short-term general hospital (02) | LOC: EMS 04:01 | PROVIDERS: ATTEND Surgery | DX: R39.14 Feeling of incomplete bladder emptying (principal); R52 Pain, unspecified | CPT/HCPCS: A0425; A0429 ==

== ENCOUNTER 2020-02-10 05:07 | Outpatient (CLI) | payer MEDICARE, OTHER | END 2020-02-12 05:08 | disposition short-term general hospital (02) | LOC: EMS 05:07 | PROVIDERS: ATTEND Surgery | DX: M25.562 Pain in left knee (principal) | CPT/HCPCS: A0425; A0429 ==

== ENCOUNTER 2023-04-17 01:27 | Outpatient (CLI) | payer MEDICARE, OTHER | END 2023-04-17 23:59 | disposition short-term general hospital (02) | LOC: EMS 01:27 | DX: M25.561 Pain in right knee (principal); Z74.09 Other reduced mobility | CPT/HCPCS: A0425; A0429 ==

== ENCOUNTER 2023-04-23 22:48 | Outpatient (CLI) | payer MEDICARE, OTHER | END 2023-04-23 23:59 | disposition short-term general hospital (02) | LOC: EMS 22:48 | DX: R53.1 Weakness (principal); R68.83 Chills (without fever); R60.0 Localized edema | CPT/HCPCS: A0425; A0429 ==

== ENCOUNTER 2023-04-26 22:31 | Outpatient (CLI) | payer MEDICARE, OTHER | END 2023-04-26 23:59 | disposition short-term general hospital (02) | LOC: EMS 22:31 | DX: M25.561 Pain in right knee (principal); R53.1 Weakness; W18.39XA Other fall on same level, initial encounter; Y92.003 Bedroom of unspecified non-institutional (private) residence as the place of occurrence of the external cause | CPT/HCPCS: A0425; A0429 ==

== ENCOUNTER 2023-06-18 01:32 | Outpatient (CLI) | payer MEDICARE, OTHER | END 2023-06-18 23:59 | disposition short-term general hospital (02) | LOC: EMS 01:32 | DX: M54.6 Pain in thoracic spine (principal); M54.50 Low back pain, unspecified; M25.561 Pain in right knee; M25.562 Pain in left knee; R10.31 Right lower quadrant pain; R10.32 Left lower quadrant pain; W18.2XXA Fall in (into) shower or empty bathtub, initial encounter; Y93.E1 Activity, personal bathing and showering; Y92.002 Bathroom of unspecified non-institutional (private) residence as the place of occurrence of the external cause | CPT/HCPCS: A0425; A0429 ==

== ENCOUNTER 2023-06-22 20:03 | Outpatient (CLI) | payer MEDICARE, OTHER | END 2023-06-22 23:59 | disposition short-term general hospital (02) | LOC: EMS 20:03 | DX: M54.50 Low back pain, unspecified (principal); W18.11XA Fall from or off toilet without subsequent striking against object, initial encounter; Y92.002 Bathroom of unspecified non-institutional (private) residence as the place of occurrence of the external cause | CPT/HCPCS: A0425; A0429 ==

== ENCOUNTER 2023-08-30 14:00 | Outpatient (CLI) | payer MEDICARE, OTHER | END 2023-08-30 14:01 | disposition short-term general hospital (02) | LOC: EMS 14:00 | DX: R10.31 Right lower quadrant pain (principal) | CPT/HCPCS: A0425; A0429 ==

== ENCOUNTER 2023-10-11 01:21 | Outpatient (CLI) | payer MEDICARE, OTHER | END 2023-10-11 23:59 | disposition short-term general hospital (02) | LOC: EMS 01:21 | DX: R10.32 Left lower quadrant pain (principal) | CPT/HCPCS: A0425; A0429 ==

== ENCOUNTER 2023-10-11 21:35 | Outpatient (CLI) | payer MEDICARE, OTHER | END 2023-10-11 21:36 | disposition short-term general hospital (02) | LOC: EMS 21:35 | DX: R53.1 Weakness (principal); M79.89 Other specified soft tissue disorders | CPT/HCPCS: A0425; A0429 ==

== ENCOUNTER 2023-10-19 02:24 | Outpatient (CLI) | payer MEDICARE, OTHER | END 2023-10-19 23:59 | disposition short-term general hospital (02) | LOC: EMS 02:24 | DX: M54.50 Low back pain, unspecified (principal); G89.29 Other chronic pain | CPT/HCPCS: A0425; A0429 ==

== ENCOUNTER 2023-11-03 16:39 | Outpatient (CLI) | payer MEDICARE, OTHER | END 2023-11-03 23:59 | disposition short-term general hospital (02) | LOC: EMS 16:39 | DX: M79.601 Pain in right arm (principal); R42 Dizziness and giddiness | CPT/HCPCS: A0425; A0427 ==

== ENCOUNTER 2023-11-28 01:47 | Outpatient (CLI) | payer MEDICARE, OTHER | END 2023-11-28 01:48 | disposition short-term general hospital (02) | LOC: EMS 01:47 | DX: M54.50 Low back pain, unspecified (principal); M54.6 Pain in thoracic spine | CPT/HCPCS: A0425; A0429 ==

== ENCOUNTER 2024-01-12 04:04 | Outpatient (CLI) | payer MEDICARE, OTHER | END 2024-01-12 23:59 | disposition short-term general hospital (02) | LOC: EMS 04:04 | DX: R07.9 Chest pain, unspecified (principal) | CPT/HCPCS: A0425; A0427 ==

== ENCOUNTER 2024-01-17 10:15 | Outpatient (CLI) | payer MEDICARE, OTHER | END 2024-01-17 23:59 | disposition short-term general hospital (02) | LOC: EMS 10:15 | DX: K62.5 Hemorrhage of anus and rectum (principal); I48.91 Unspecified atrial fibrillation; Z79.01 Long term (current) use of anticoagulants; Z99.81 Dependence on supplemental oxygen | CPT/HCPCS: A0425; A0427 ==